=== PATIENT | female | born 1975 | race Caucasian/White ===

== ENCOUNTER 2021-12-11 02:04 | Emergency (ER) | payer OTHER ==
[~2021-12-11] VITALS: Ht 167.6 cm; Wt 77.7 kg
[2021-12-11 10:00] VITALS: BP 117/73
== END 2021-12-11 10:11 | disposition home or self-care (01) ==
LOC: EMS 02:05
DX: S02.652A Fracture of angle of left mandible, initial encounter for closed fracture (principal); Z98.890 Other specified postprocedural states; Z98.51 Tubal ligation status; Y08.89XA Assault by other specified means, initial encounter; Y93.89 Activity, other specified; Y92.89 Other specified places as the place of occurrence of the external cause; Y99.8 Other external cause status
CPT/HCPCS: 70486; 99285; Z7502